=== PATIENT | female | born 1965 | race Caucasian/White ===

== ENCOUNTER 2019-05-01 09:05 | Day surgery (SDC) | payer OTHER ==
[2019-04-28 15:09] LABS: BASOPHILS 0.3 % (0-2); EOSINOPHILS 3.2 % (0-7); HEMATOCRIT 35.3 % (36.0-48.0); HEMOGLOBIN 11.1 g/dL (12-16); IMMATURE GRANULOCYTES 0.3 % (0-5); LYMPHOCYTES 16.7 % (15-50); MCH 25.5 pg (26.0-34.0); MCHC 31.4 g/dL (31.0-37.0); MCV 81.1 fL (80.0-100.0); MEAN PLATELET VOLUME 10.2 fL (7.4-10.4); MONOCYTES 8.2 % (2-11); NEUTROPHILS 71.3 % (40-80); PLATELET COUNT 262 10x3/uL (130-400); RBC 4.35 10x6/uL (4.00-5.40); RDW 14.3 % (11.5-14.5); WBC 9.6 10x3/uL (4.8-10.8)
[~2019-05-01] VITALS: Ht 170.2 cm; Wt 193.2 kg
[~2019-05-01 09:05] MED LIST: BACLOFEN20 M1 PO; COZAAR100 MG PO; FUROSEMIDE20 MG PO; LEVOTHYROXINE100 MCG PO; NORVASC2.5 MG PO
[2019-05-01 11:24] VITALS: BP 138/70; Ht 170.2 cm; Wt 193.2 kg
[2019-05-01 12:25] LABS: HCG SERUM NEGATIVE (NEGATIVE)
--- NOTE | 2019-05-05 09:56 | OP ---
PATIENT NAME: ARIANA POMPA MEDICAL RECORD: [id number] :63 LOCATION:D.OPS ADMISSION DATE: SURGEON: CHEVY JACOBSEN MD DATE OF OPERATION: 05/01/2019 PREOPERATIVE DIAGNOSIS: Perimenopausal bleeding. POSTOPERATIVE DIAGNOSIS: Perimenopausal bleeding. PROCEDURES: 1. Hysteroscopy. 2. Dilation and curettage. SURGEON: Chevy Jacobsen MD ANESTHESIOLOGIST: Dr. Shook ANESTHESIA: General. FINDINGS: Uterus is poorly palpated due to the patient's body habitus. The cervix is dilated and easily accepts a 4-mm hysteroscope. Moderate tissue was returned at the time of curettage and at the time of hysteroscopy, multiple polypoid lesions are evident. SPECIMENS REMOVED: Endometrial curetting. SPECIMEN DISPOSITION: Pathology. ESTIMATED BLOOD LOSS: Minimal. FLUIDS: 400 cc of lactated Ringer's. URINE OUTPUT: Quantity sufficient void prior to this procedure. COMPLICATIONS: None. DRAINS: None. INDICATIONS: The patient is a 53-year-old female, who reports continued periods without significant cessation. The patient presents with heavy irregular bleeding and is evaluated for this. DESCRIPTION OF PROCEDURE: After informed consent was assured, the patient was taken to the operating room, where anesthetic was obtained. The patient was prepped and draped in the usual sterile fashion. Cervix was visualized using an operative speculum. The cervix was grasped and noted to be dilated to easily accept a 4-mm hysteroscope. This was passed under direct visualization into the fundus. Both ostia are visualized. The endometrium was noted to be lush with multiple polypoid lesions. The cervix is now dilated to accommodate a #3 curette. This was passed to the fundus and curetting was now obtained with good cry throughout. Tissue was removed from the vaginal vault and sent to pathology. The single-tooth tenaculum, which was used to hold the cervix during this procedure, was removed with adequate hemostasis noted. Sponge, lap, and needle counts were correct times 2. The patient was awakened and went to the recovery area in a stable condition. 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
== END 2019-05-01 16:47 | disposition home or self-care (01) ==
LOC: D.OPS 09:05 → D.PAN 11:00 → D.OPS 11:00 → D.PAN 11:15 → D.OPS 11:40
PROVIDERS: Anesthesiology; ATTEND Obstetrics & Gynecology
DX: N92.4 Excessive bleeding in the premenopausal period (principal)

== ENCOUNTER → 2020-10-24 12:55 | Outpatient (CLI) | payer OTHER ==
[2019-05-01 11:24] VITALS: BMI 66.9
== END | disposition home or self-care (01) ==
LOC: D.US 12:55
PROVIDERS: ATTEND Nurse Practitioner Family
DX: R59.0 Localized enlarged lymph nodes (principal)